=== PATIENT | female | born 1935 | race Caucasian/White ===

== ENCOUNTER 2024-03-03 16:03 | Emergency (ER) | payer BC, OTHER ==
[2024-03-03 16:14] VITALS: BP 131/72; PULSE 61; RESP 16; TEMP 97.6; BMI 28.1
[2024-03-03] MEDS ORDERED: ACETAMINOPHEN 325 MG TABLET (FP) ONE (17:04)
[2024-03-03] MEDS ORDERED: ONDANSETRON *ODT* 4 MG TABLET ONE (17:04)
[2024-03-03] MEDS: ACETAMINOPHEN 325 MG TABLET (FP) PO ONE (17:10)
[2024-03-03] MEDS: ONDANSETRON *ODT* 4 MG TABLET SL ONE (17:13)
== END 2024-03-03 19:02 | disposition home or self-care (01) ==
LOC: JER 16:03
DX: M25.512 Pain in left shoulder (principal); M25.561 Pain in right knee; W11.XXXA Fall on and from ladder, initial encounter
CPT/HCPCS: 70450-TC; 71046-TC-FY; 72125-TC; 73562-TC-RT-FY; 99284-25